=== PATIENT | male | born 1945 | race Hispanic/Latino ===

== ENCOUNTER → 2019-03-07 | Day surgery (SDC) | payer MEDICARE ==
[2019-03-04 13:35] LABS: BASOPHILS # (AUTO) 0.1 (0.0-0.1); BASOPHILS % 0.6 % (0.0-1.0); EOSINOPHILS # (AUTO) 0.2 (0.0-0.4); EOSINOPHILS % 2.1 % (0.0-6.0); HEMATOCRIT 42.3 % (38.2-49.6); HEMOGLOBIN 14.6 g/dL (14.0-18.0); LYMPHOCYTES # (AUTO) 1.1 (1.0-3.2); LYMPHOCYTES % 13.5 % (18.0-39.1); MEAN CORPUSCULAR HEMOGLOBIN 30.2 pg (28-32); MEAN CORPUSCULAR HGB CONC 34.5 g/dL (31-35); MEAN CORPUSCULAR VOLUME 87.6 fL (81-99); MONOCYTES # (AUTO) 0.6 (0.2-0.8); MONOCYTES % 7.7 % (4.4-11.3); NEUTROPHILS # (AUTO) 5.9 (2.1-6.9); NEUTROPHILS % 75.5 % (38.7-80.0); PLATELET COUNT 196 x10e3/uL (140-360); RED BLOOD COUNT 4.83 x10e6/uL (4.3-5.7); RED CELL DISTRIBUTION WIDTH 12.6 % (11.7-14.4)
[~2019-03-07] MED LIST: ASPIRIN81 M1 PO; CLARITIN10 MG PO; CLARITIN5 MG; GLIPIZIDE10 MG PO; LANTUS100 UNITS/ SQ; LOSARTAN POTASS50 MG PO; LOSARTAN-HCTZ1 EAC2 PO; METFORMIN HCL500 MG PO; METFORMIN HCL850 MG PO; PROPOFOL IV EMULSION 10 MG/ML 50 ML VIAL ONE; SIMVASTATIN40 MG PO; VESICARE5 MG PO
[2019-03-07 07:50] VITALS: BP 120/78
== END | disposition home or self-care (01) ==
LOC: OR 05:00
PROVIDERS: ATTEND Internal Medicine Gastroenterology
DX: Z12.11 Encounter for screening for malignant neoplasm of colon (principal); D12.3 Benign neoplasm of transverse colon; K57.30 Diverticulosis of large intestine without perforation or abscess without bleeding; K64.8 Other hemorrhoids; K21.9 Gastro-esophageal reflux disease without esophagitis; Z71.3 Dietary counseling and surveillance; E66.3 Overweight; E11.9 Type 2 diabetes mellitus without complications; I10 Essential (primary) hypertension; I44.0 Atrioventricular block, first degree; N20.0 Calculus of kidney; F41.9 Anxiety disorder, unspecified; Z88.8 Allergy status to other drugs, medicaments and biological substances; Z01.810 Encounter for preprocedural cardiovascular examination; Z01.812 Encounter for preprocedural laboratory examination; Z79.4 Long term (current) use of insulin; Z79.84 Long term (current) use of oral hypoglycemic drugs; Z68.27 Body mass index [BMI] 27.0-27.9, adult; Z85.46 Personal history of malignant neoplasm of prostate
CPT/HCPCS: 36415 ×2; 45385; 82948; 85025; 88305; 93005; J2704